=== PATIENT | male | born 1980 | race American Indian/Alaskan Native ===

== ENCOUNTER 2018-09-16 10:04 | Emergency (ER) | payer OTHER ==
[2018-09-16 10:20] VITALS: BP 149/97
[2018-09-16] MEDS ORDERED: DILAUDID IV ONE (10:29)
[2018-09-16] MEDS ORDERED: ZOFRAN IV ONE (10:29)
--- NOTE | 2018-09-16 10:34 | Emergency Department Report ---
HPI - General Chief Complaint: Fall Time Seen by Provider: 09/16/18 10:21 - HPI HPI: Room 3 The patient is a 38-year-old male presented with a chief complaint of pain after fall. The patient states he was standing on a truck cutting limbs from a tree when he lost his balance and fell landing on his right side. Patient admits to loss of consciousness. Patient complains of pain in his right upper extremity neck and back. Patient was administered fentanyl 50 g IV prior to arrival and currently gives his pain score of 8/10 Location: [See above] Duration: [See above] Quality: Pain Severity: 8/10 Modifying factors: [see above] Context: [see above] Mode of transportation: [not driving] ED Past Medical Hx - Past Medical History Previous Medical History?: Yes Hx Hypertension: Yes - Surgical History Past Surgical History?: No - Family History Family history: no significant - Social History Smoking Status: Never Smoker Substance Use Type: None - Medications Home Medications: Home Medications Medication Instructions Recorded Confirmed Last Taken Type Cyclobenzaprine [Flexeril] 10 mg PO TID PRN #14 tablet 09/16/18 Unknown Rx HYDROcodone/APAP 5-325 [[place] 1 - 2 each PO Q6HR PRN #14 tablet 09/16/18 Unknown Rx 5/325] Ibuprofen [Motrin 800 MG tab] 800 mg PO Q8HR PRN #20 tablet 09/16/18 Unknown Rx ED Review of Systems ROS: Stated complaint: (R)SHOULDER PAIN/FELL OFF FLATBED Other details as noted in HPI Constitutional: no symptoms reported Eyes: denies: eye pain ENT: denies: throat pain Respiratory: no symptoms reported Cardiovascular: denies: chest pain Endocrine: no symptoms reported Gastrointestinal: denies: abdominal pain Genitourinary: denies: dysuria Musculoskeletal: back pain, arthralgia, myalgia Neurological: other (loss of consciousness) Physical Exam - Physical Exam Vital Signs: Vital Signs 09/16/18 10:17 Temperature 98.3 F Pulse Rate 78 Respiratory 16 Rate Blood Pressure 149/97 [Left] O2 Sat by Pulse 96 Oximetry Physical Exam: GENERAL: The patient is well-developed well-nourished male lying on stretcher with right upper extremity sling appearing to be in moderate discomfort. [] HEENT: Normocephalic. Atraumatic. Extraocular motions are intact. Patient has moist mucous membranes. NECK: Supple. There is axial tenderness to palpation but no axial step off CHEST/LUNGS: Clear to auscultation. There is no respiratory distress noted. HEART/CARDIOVASCULAR: Regular. There is no tachycardia. There is no gallop rub or murmur. ABDOMEN: Abdomen is soft, nontender. Patient has normal bowel sounds. There is no abdominal distention. SKIN: There is no rash. There is no edema. There is no diaphoresis. NEURO: The patient is awake, alert, and oriented. The patient is cooperative. The patient has no focal neurologic deficits. The patient has normal speech MUSCULOSKELETAL: There is tenderness to palpation of the right upper extremity, right shoulder blade, ED Course Vital Signs 09/16/18 10:17 Temperature 98.3 F Pulse Rate 78 Respiratory 16 Rate Blood Pressure 149/97 [Left] O2 Sat by Pulse 96 Oximetry ED Medical Decision Making - Radiology Data Radiology results: report reviewed (right shoulder x-ray, CT head, CT cervical spine, CT chest), image reviewed (right shoulder x-ray CT head, CT cervical spine, CT chest) interpreted by me: Right shoulder x-ray-no acute fracture, no dislocation Right forearm x-ray-no acute fracture [address] [address] XRay Report Signed Patient: MICKEY HARVEY MR#: [id number] : 1980 Acct:[id number] Age/Sex: 38 / M ADM Date: 09/16/18 Loc: ED Attending Dr: Ordering Physician: ANGIE BLACKWOOD MD Date of Service: 09/16/18 Procedure(s): XR shoulder 2+V RT Accession Number(s): [id number] cc: ANGIE BLACKWOOD MD Fluoro Time In Minutes: RIGHT SHOULDER, 2 VIEWS: HISTORY: right shoulder pain. Normal bone mineralization. No acute osseous injury or joint pathology is detected. The soft tissues are unremarkable. IMPRESSION: Right shoulder within normal limits. Transcribed By: TTR Dictated By: RYAN HER JR, MD Electronically Authenticated By: RYAN HER JR, MD Signed Date/Time: 09/16/18 1146 DD/ 1146 TD/TT: 09/16/[address] [address] XRay Report Signed Patient: MICKEY HARVEY MR#: [id number] : 1980 Acct:[id number] Age/Sex: 38 / M ADM Date: 09/16/18 Loc: ED Attending Dr: Ordering Physician: ANGIE BLACKWOOD MD Date of Service: 09/16/18 Procedure(s): XR forearm RT Accession Number(s): [id number] cc: ANGIE BLACKWOOD MD Fluoro Time In Minutes: RIGHT FOREARM: History: Pain after fall AP and lateral views of the forearm demonstrate normal mineralization and contours for this patient's age. No destructive changes are noted and the adjacent soft tissues are normal. IMPRESSION: Normal right forearm. Transcribed By: TTR Dictated By: RYAN HER JR, MD Electronically Authenticated By: RYAN HER JR, MD Signed Date/Time: 09/16/18 114 DD/ 1146 TD/TT: 09/16/[address] [address] Cat Scan Report Signed Patient: MICKEY HARVEY MR#: [id number] : 1980 Acct:[id number] Age/Sex: 38 / M ADM Date: 09/16/18 Loc: ED Attending Dr: Ordering Physician: ANGIE BLACKWOOD MD Date of Service: 09/16/18 Procedure(s): CT head/brain wo con Accession Number(s): [id number] cc: ANGIE BLACKWOOD MD FINAL REPORT EXAM: CT HEAD/BRAIN WO CON HISTORY: LOC after fall TECHNIQUE: CT of the head was performed without intravenous contrast. PRIORS: None. FINDINGS: There is mild motion artifact with some which degrades image quality. The ventricles are nondilated. No intracranial hemorrhage, mass, mass effect, midline shift or evidence of acute ischemic infarct. The basilar cisterns are patent. There is mucosal thickening of the maxillary sinuses. Right maxillary sinus mucous retention cyst is seen. The extracranial soft tissues demonstrate no abnormality. The calvarium is intact. The orbits are intact. The mastoid air cells are clear. IMPRESSION: No acute intracranial abnormality. Transcribed By: MG Dictated By: HERI OWENS MD Electronically Authenticated By: HERI OWENS MD Signed Date/Time: 09/16/18 1231 DD/ 1230 TD/TT: 09/16/[address] [address] Cat Scan Report Signed Patient: MICKEY HARVEY MR#: [id number] : 1980 Acct:[id number] Age/Sex: 38 / M ADM Date: 09/16/18 Loc: ED Attending Dr: Ordering Physician: ANGIE BLACKWOOD MD Date of Service: 09/16/18 Procedure(s): CT cervical spine wo con Accession Number(s): [id number] cc: ANGIE BLACKWOOD MD FINAL REPORT EXAM: CT CERVICAL SPINE WO CON HISTORY: pain after fall TECHNIQUE: CT of the cervical spine was performed without intravenous contrast. Reconstructions were included in the coronal and sagittal planes. PRIORS: None. FINDINGS: No cervical spine fracture or subluxation. The prevertebral soft tissues are normal. No spinal canal stenosis or neural foraminal narrowing. There is a nodular density in the left upper mediastinum measuring 3.2 x 1.8 centimeters. This nodule may be contiguous with thyroid gland. Mucosal thickening of the maxillary sinuses is likely congestive or inflammatory. Right maxillary sinus mucous retention cyst is seen. IMPRESSION: 1. No acute cervical spine abnormality. 2. Nonspecific nodular density in the left upper mediastinum which may be contiguous with the left thyroid lobe and could represent a thyroid nodule versus separate nodule such as a lymph node or other mass lesion. Transcribed By: MG Dictated By: HERI OWENS MD Electronically Authenticated By: HERI OWENS MD Signed Date/Time: 09/16/18 1227 DD/ 1227 TD/TT: 09/16/[address] [address] Cat Scan Report Signed Patient: MICKEY HARVEY MR#: [id number] : 1980 Acct:[id number] Age/Sex: 38 / M ADM Date: 09/16/18 Loc: ED Attending Dr: Ordering Physician: ANGIE BLACKWOOD MD Date of Service: 09/16/18 Procedure(s): CT chest wo con Accession Number(s): [id number] cc: ANGIE BLACKWOOD MD FINAL REPORT EXAM: CT CHEST WO CON HISTORY: right shoulder blade and upper back pain after fall TECHNIQUE: CT of the chest was performed without intravenous contrast. Reconstructions were included in the coronal and sagittal planes. PRIORS: None. FINDINGS: Motion artifact somewhat degrades image quality. Great vessels: The thoracic aorta is normal in caliber. Lungs and airways: No pleural effusion. No pulmonary nodules or masses. No airspace consolidation. The airways are patent. No bronchiectasis. No pneumothorax. Mediastinum, heart, pericardium: There is a nodular density in the left upper mediastinum measuring 3.2 x 1.8 centimeters. This nodule may be contiguous with thyroid gland. No cardiac chamber enlargement. No pericardial effusion. Thoracic inlet, chest wall, axilla: No chest wall masses. No axillary lymphadenopathy. Upper abdomen: Small low-attenuation lesion is seen in the interpolar region of the left kidney measuring 9 millimeters which is higher in attenuation than a simple cyst. The liver is diffusely low in attenuation. Bones: Degenerative changes are seen in the thoracic spine. IMPRESSION: 1. No acute intrathoracic process. 2. Nodular density in the left upper mediastinum may represent a thyroid nodule versus separate lesion such as a lymph node or other mass. 3. Hepatic steatosis. 4. Nonspecific left renal lesion is higher in attenuation than a simple cyst. Recommend further evaluation with renal ultrasound. Transcribed By: Dictated By: HERI OWENS MD Electronically Authenticated By: HERI OWENS MD Signed Date/Time: 09/16/18 124 DD/ 1241 TD/TT: 09/16/18 1241 - Medical Decision Making Renal lesion and possible thyroid nodule seen on CT discussed with the patient. The need for follow-up was stressed. Patient to be given physicians to follow up with for further evaluation. Patient verbalized understanding - Differential Diagnosis closed head injury, clavicle fracture, humerus fracture, scapular fracture Critical care attestation.: If time is entered above; I have spent that time in minutes in the direct care of this critically ill patient, excluding procedure time. ED Disposition Clinical Impression: Closed head injury, Sprain of right shoulder, Acute cervical myofascial strain, Thyroid nodule, Renal lesion Disposition: TO HOME OR SELFCARE Is pt being admited?: No Does the pt Need Aspirin: No Condition: Stable Additional Instructions: Return to the emergency department immediately should you develop worsening symptoms, fever, inability to tolerate food or liquid or any other concerns. Prescriptions: Cyclobenzaprine [Flexeril] 10 mg PO TID PRN #14 tablet PRN Reason: Muscle Spasm HYDROcodone/APAP 5-325 [[place] 5/325] 1 - 2 each PO Q6HR PRN #14 tablet PRN Reason: Pain Ibuprofen [Motrin 800 MG tab] 800 mg PO Q8HR PRN #20 tablet PRN Reason: Pain, Moderate (4-6) Referrals: HARVINDER HUIZAR MD [Staff Physician] - 3-5 Days (Dr. Huizar is an orthopedic surgeon. Please follow up with him for further evaluation of your shoulder pain) LISBET LEIGH MD [Staff Physician] - 3-5 Days (Dr Leigh is a field ring assembler. Please follow up with him for further evaluation of your left renal lesion) LYDIA LUX MD [Staff Physician] - 3-5 Days (Dr. Lux is a primary physician. Please follow up with him to be established as a patient for further evaluation of your possible thyroid nodule) Time of Disposition: 12:54
--- NOTE | 2018-09-16 11:49 | XRay Report ---
RIGHT SHOULDER, 2 VIEWS: HISTORY: right shoulder pain. Normal bone mineralization. No acute osseous injury or joint pathology is detected. The soft tissues are unremarkable. IMPRESSION: Right shoulder within normal limits.
--- NOTE | 2018-09-16 11:49 | XRay Report ---
RIGHT FOREARM: History: Pain after fall AP and lateral views of the forearm demonstrate normal mineralization and contours for this patient's age. No destructive changes are noted and the adjacent soft tissues are normal. IMPRESSION: Normal right forearm.
--- NOTE | 2018-09-16 12:27 | Cat Scan Report ---
FINAL REPORT EXAM: CT CERVICAL SPINE WO CON HISTORY: pain after fall TECHNIQUE: CT of the cervical spine was performed without intravenous contrast. Reconstructions were included in the coronal and sagittal planes. PRIORS: None. FINDINGS: No cervical spine fracture or subluxation. The prevertebral soft tissues are normal. No spinal canal stenosis or neural foraminal narrowing. There is a nodular density in the left upper mediastinum measuring 3.2 x 1.8 centimeters. This nodule may be contiguous with thyroid gland. Mucosal thickening of the maxillary sinuses is likely congestive or inflammatory. Right maxillary sin us mucous retention cyst is seen. IMPRESSION: 1. No acute cervical spine abnormality. 2. Nonspecific nodular density in the left upper mediastinum which may be contiguous with the left th yroid lobe and could represent a thyroid nodule versus separate nodule such as a lymph node or other mass lesion.
--- NOTE | 2018-09-16 12:31 | Cat Scan Report ---
FINAL REPORT EXAM: CT HEAD/BRAIN WO CON HISTORY: LOC after fall TECHNIQUE: CT of the head was performed without intravenous contrast. PRIORS: None. FINDINGS: There is mild motion artifact with some which degrades image quality. The ventricles are nondilated. No intracranial hemorrhage, mass, mass effect, midline shift or evidence of acute ischemic infarct. The basilar cisterns are patent. There is mucosal thickening of the maxillary sinuses. Right maxillary sinus mucous retention cyst is seen. The extracranial soft tissues demonstrate no abnormality. The calvarium is intact. The orbits a re intact. The mastoid air cells are clear. IMPRESSION: No acute intracranial abnormality.
--- NOTE | 2018-09-16 12:41 | Cat Scan Report ---
FINAL REPORT EXAM: CT CHEST WO CON HISTORY: right shoulder blade and upper back pain after fall TECHNIQUE: CT of the chest was performed without intravenous contrast. Reconstructions were included in the coronal and sagittal planes. PRIORS: None. FINDINGS: Motion artifact somewhat degrades image quality. Great vessels: The thoracic aorta is normal in caliber. Lungs and airways: No pleural effusion. No pulmonary nodules or masses. No airspace consolidation. Th e airways are patent. No bronchiectasis. No pneumothorax. Mediastinum, heart, pericardium: There is a nodular density in the left upper mediastinum measuring 3 .2 x 1.8 centimeters. This nodule may be contiguous with thyroid gland. No cardiac chamber enlargemen t. No pericardial effusion. Thoracic inlet, chest wall, axilla: No chest wall masses. No axillary lymphadenopathy. Upper abdomen: Small low-attenuation lesion is seen in the interpolar region of the left kidney measu ring 9 millimeters which is higher in attenuation than a simple cyst. The liver is diffusely low in a ttenuation. Bones: Degenerative changes are seen in the thoracic spine. IMPRESSION: 1. No acute intrathoracic process. 2. Nodular density in the left upper mediastinum may represent a thyroid nodule versus separate lesio n such as a lymph node or other mass. 3. Hepatic steatosis. 4. Nonspecific left renal lesion is higher in attenuation than a simple cyst. Recommend further evalu ation with renal ultrasound.
== END 2018-09-16 13:20 | disposition home or self-care (01) ==
LOC: ED 10:04
DX: S16.1XXA Strain of muscle, fascia and tendon at neck level, initial encounter (principal); S43.401A Unspecified sprain of right shoulder joint, initial encounter; S09.90XA Unspecified injury of head, initial encounter; I10 Essential (primary) hypertension; E04.1 Nontoxic single thyroid nodule; N28.9 Disorder of kidney and ureter, unspecified; W18.30XA Fall on same level, unspecified, initial encounter; Y93.89 Activity, other specified; Y92.89 Other specified places as the place of occurrence of the external cause; Y99.8 Other external cause status
CPT/HCPCS: 70450; 71250; 72125; 73030; 73090; 96374; 96375; 99284; J1170; J2405